=== PATIENT | female | born 1955 | race Caucasian/White ===

== ENCOUNTER 2016-10-17 15:15 | Emergency (ER) | payer OTHER ==
[2016-10-17 15:49] VITALS: BP 112/57
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
== END 2016-10-17 19:07 | disposition home or self-care (01) ==
LOC: ED 15:15
DX: F10.129 Alcohol abuse with intoxication, unspecified (principal)
CPT/HCPCS: 99282

== ENCOUNTER 2017-06-04 07:54 | Emergency (ER) | payer OTHER ==
[2017-06-04 08:00] VITALS: BP 137/65
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
== END 2017-06-04 09:08 | disposition home or self-care (01) ==
LOC: UCEAST 07:54
DX: S52.501A Unspecified fracture of the lower end of right radius, initial encounter for closed fracture (principal); S52.601A Unspecified fracture of lower end of right ulna, initial encounter for closed fracture; V19.3XXA Pedal cyclist (driver) (passenger) injured in unspecified nontraffic accident, initial encounter; I10 Essential (primary) hypertension; Z88.2 Allergy status to sulfonamides
CPT/HCPCS: 99213; G0463